=== PATIENT | female | born 1965 | race Caucasian/White ===

== ENCOUNTER 2018-01-12 12:03 | Inpatient (IN) | payer MEDICARE, MEDICAID ==
[2018-01-12] VITALS (12 sets, daily range): BP systolic 108–167; BP diastolic 58–112; PULSE 48–86; RESP 11–35; TEMP 97.4–98; O2SAT 97–100
[~2018-01-12] VITALS: Ht 157.5 cm; Wt 72.5 kg
[~2018-01-12 12:03] MED LIST: AMPI500C63
[2018-01-12] MEDS ORDERED: SODIUM CHLORIDE 0.9% FLUSH 10 ML FLUSH IV FLUSH PRN (12:45)
[2018-01-12] MEDS ORDERED: LORazepam 2 MG/ML VIAL IV PUSH ONE (12:45)
[2018-01-12 12:54] LABS: BILIRUBIN, URINE NEG (NEG); BLOOD, URINE MOD (NEG); GLUCOSE,URINE NEG (NEG); KETONE, URINE NEG (NEG); NITRITE,URINE NEG (NEG); PH, URINE 5.5 (5.0-8.5); URINE COLOR YELLOW (YELLW/STRAW); URINE LEUKOCYTE ESTERASE NEG (NEG)
[2018-01-12 12:56] LABS: AUTOMATED NEUTROPHIL # 16.6 TH/MM3 (1.8-7.7); BASOPHIL % 0.1 % (0.0-2.0); EOSINOPHIL # 0.1 TH/MM3 (0-0.4); EOSINOPHIL % 0.3 % (0.0-4.0); HEMATOCRIT 44.3 % (35.0-46.0); HEMOGLOBIN 15.1 GM/DL (11.6-15.3); LYMPH % 7.5 % (9.0-44.0); LYMPHOCYTE # 1.4 TH/MM3 (1.0-4.8); MEAN CELL VOLUME 86.8 FL (80.0-100.0); MEAN CORPUSCULAR HEMOGLOBIN 29.6 PG (27.0-34.0); MEAN CORPUSCULAR HGB CONC 34.2 % (32.0-36.0); MEAN PLATELET VOLUME 7.9 FL (7.0-11.0); MONO % 5.3 % (0.0-8.0); NEUT % 86.8 % (16.0-70.0); PLATELET COUNT 354 TH/MM3 (150-450); RED BLOOD COUNT 5.11 MIL/MM3 (4.00-5.30); RED CELL DISTRIBUTION WIDTH 13.8 % (11.6-17.2); WHITE BLOOD COUNT 19.1 TH/MM3 (4.0-11.0)
[2018-01-12 13:00] LABS: AMORPHOUS SEDIMENT, URINE LARGE; RBC, URINE 0-3 /hpf (0-3); TRANSITIONAL EPI CELLS, URINE > 8 /hpf
[2018-01-12] MEDS ORDERED: SODIUM CHLOR 0.9% 1000 ML INJ 1,000 ML IV ONE ×2 (13:00→15:30)
[2018-01-12 13:06] LABS: CHLORIDE 100 MEQ/L (98-107); SODIUM (NA) 136 MEQ/L (136-145)
[2018-01-12 13:09] LABS: CALCIUM 9.3 MG/DL (8.5-10.1)
[2018-01-12 13:10] LABS: ALBUMIN 3.9 GM/DL (3.4-5.0); BICARBONATE 23.9 MEQ/L (21.0-32.0); BLOOD UREA NITROGEN 66 MG/DL (7-18); GLUCOSE,RANDOM 130 MG/DL (74-106)
[2018-01-12 13:12] LABS: ALT (GPT) 24 U/L (10-53)
[2018-01-12 13:13] LABS: AST (GOT) 17 U/L (15-37); GLOMERULAR FILTRATION RATE 8 ML/MIN (>89)
[2018-01-12 13:14] LABS: TOTAL BILIRUBIN ADULT 0.5 MG/DL (0.2-1.0); TOTAL PROTEIN 9.2 GM/DL (6.4-8.2)
--- NOTE | 2018-01-12 13:14 | RADRPT ---
EXAM DATE/TIME: 01/12/2018 12:54 [place] COMPARISON: No previous studies available for comparison. INDICATIONS : Altered mental status RADIATION DOSE: 56.17 CTDIvol (mGy) MEDICAL HISTORY : Non-responsive. SURGICAL HISTORY : Surgery for blood clots ENCOUNTER: Initial ACUITY: 1 day PAIN SCALE: Non-responsive LOCATION: cranial TECHNIQUE: Multiple contiguous axial images were obtained of the head. Using automated exposure control and adj ustment of the mA and/or kV according to patient size, radiation dose was kept as low as reasonably a chievable to obtain optimal diagnostic quality images. DICOM format image data is available electro nically for review and comparison. FINDINGS: CEREBRUM: The ventricles are normal for age. No evidence of midline shift, mass lesion, hemorrhage or acute in farction. No extra-axial fluid collections are seen. POSTERIOR FOSSA: The cerebellum and brainstem are intact. The 4th ventricle is midline. The cerebellopontine angle i s unremarkable. EXTRACRANIAL: The visualized portion of the orbits is intact. SKULL: The calvaria is intact. No evidence of skull fracture. CONCLUSION: Negative noncontrast head CT Kush Huerta MD on January 12, 2018 at 13:11 Board Certified Radiologist. This report was verified electronically.
[2018-01-12 13:15] LABS: ALKALINE PHOSPHATASE 80 U/L (45-117)
[2018-01-12 13:18] LABS: TROPONIN I LESS THAN 0.02 NG/ML (0.02-0.05)
--- NOTE | 2018-01-12 14:06 | PD ---
HPI Chief Complaint: Altered Mental Status Time Seen by Provider: 12:24 Travel History International Travel<30 days: No Contact w/Intl Traveler<30days: No Traveled to known affect area: No History of Present Illness HPI 52 yo Female arrives with his son due to altered mental status. Patient was at a bar yesterday evening around 6:30 PM the patient's son encountered her at home during which time she was observed with drunken affect and very sleepy affect. He can her again this morning and she appeared to be even more intoxicated and sleepy. Due to altered mental status the patient cannot offer much history here limiting history. PFSH Past Medical History Cancer: Yes (CERVICAL) Diminished Hearing: No Tetanus Vaccination: Unknown ?: Unknown Past Surgical History Abdominal Surgery: Yes (ABDOMINAL SURGERY FOR "BOOLD CLOTS") Social History Alcohol Use: No Tobacco Use: Yes (ONE PK PER DAY) Substance Use: No Allergies-Medications (Allergen,Severity, Reaction): Coded Allergies: No Known Allergies (Verified Allergy, Unknown, 01/12/18) Reported Meds & Prescriptions Reported Meds & Active Scripts Active No Active Prescriptions or Reported Medications Review of Systems ROS Limitations: Clinical Condition, Intoxication Physical Exam Narrative GENERAL: 52-year-old female well-nourished well-developed mild to moderate distress Vital Signs Date Time Temp Pulse Resp B/P (MAP) Pulse Ox O2 Delivery O2 Flow Rate FiO2 01/12/18 13:24 98 Room Air 01/12/18 12:21 98 Room Air 01/12/18 12:19 98.0 84 16 109/66 (80) 97 SKIN: Warm and dry. HEAD: Atraumatic. Normocephalic. EYES: Pupils equal and round. No scleral icterus. No injection or drainage. ENT: No nasal bleeding or discharge. Mucous membranes pink and moist. NECK: Trachea midline. No JVD. CARDIOVASCULAR: Regular rate and rhythm. RESPIRATORY: No accessory muscle use. Clear to auscultation. Breath sounds equal bilaterally. GASTROINTESTINAL: Abdomen soft, non-tender, nondistended. Hepatic and splenic margins not palpable. MUSCULOSKELETAL: Extremities without clubbing, cyanosis, or edema. No obvious deformities. NEUROLOGICAL: Patient moves all extremities normally. The cranial nerves are normal. She does not answer questions. At time she calls for her son attempts to him however cannot meaningfully participate with a history of present illness and physical exam. PSYCHIATRIC: Unable to assess. Data Data Last Documented VS Vital Signs Date Time Temp Pulse Resp B/P (MAP) Pulse Ox O2 Delivery O2 Flow Rate FiO2 01/12/18 13:24 98 Room Air 01/12/18 12:19 98.0 84 16 109/66 (80) Orders Orders Electrocardiogram (01/12/18 12:31) Ammonia (01/12/18 12:31) Complete Blood Count With Diff (01/12/18 12:31) Comprehensive Metabolic Panel (01/12/18 12:31) Creatine Kinase (Cpk) (01/12/18 12:31) Troponin I (01/12/18 12:31) Thyroid Stimulating Hormone (01/12/18 12:31) Urinalysis - C+S If Indicated (01/12/18 12:31) Ct Brain W/O Iv Contrast(Rout) (01/12/18 12:31) Ecg Monitoring (01/12/18 12:31) Iv Access Insert/Monitor (01/12/18 12:31) Oximetry (01/12/18 12:31) Sodium Chloride 0.9% Flush (Ns Flush) (01/12/18 12:45) Drug Screen, Random Urine (01/12/18 12:31) Alcohol (Ethanol) (01/12/18 12:31) Salicylates (Aspirin) (01/12/18 12:31) Tylenol (Acetaminophen) (01/12/18 12:31) Lorazepam Inj (Ativan Inj) (01/12/18 12:45) Sodium Chlor 0.9% 1000 Ml Inj (Ns 1000 M (01/12/18 13:00) CKMB (01/12/18 12:41) CKMB% (01/12/18 12:41) Admit Order (Ed Use Only) (01/12/18 ) Network Technical Analyst / Telemetry [email or web address] (01/12/18 15:10) Vital Signs (Adult) Q4H (01/12/18 15:10) Activity Bed Rest (01/12/18 15:10) Labs Laboratory Tests Test 01/12/18 12:41 01/12/18 12:42 White Blood Count 19.1 TH/MM3 Red Blood Count 5.11 MIL/MM3 Hemoglobin 15.1 GM/DL Hematocrit 44.3 % Mean Corpuscular Volume 86.8 FL Mean Corpuscular Hemoglobin 29.6 PG Mean Corpuscular Hemoglobin Concent 34.2 % Red Cell Distribution Width 13.8 % Platelet Count 354 TH/MM3 Mean Platelet Volume 7.9 FL Neutrophils (%) (Auto) 86.8 % Lymphocytes (%) (Auto) 7.5 % Monocytes (%) (Auto) 5.3 % Eosinophils (%) (Auto) 0.3 % Basophils (%) (Auto) 0.1 % Neutrophils # (Auto) 16.6 TH/MM3 Lymphocytes # (Auto) 1.4 TH/MM3 Monocytes # (Auto) 1.0 TH/MM3 Eosinophils # (Auto) 0.1 TH/MM3 Basophils # (Auto) 0.0 TH/MM3 CBC Comment AUTO DIFF Differential Comment AUTO DIFF CONFIRMED Blood Urea Nitrogen 66 MG/DL Creatinine 5.40 MG/DL Random Glucose 130 MG/DL Total Protein 9.2 GM/DL Albumin 3.9 GM/DL Calcium Level 9.3 MG/DL Alkaline Phosphatase 80 U/L Aspartate Amino Transf (AST/SGOT) 17 U/L Alanine Aminotransferase (ALT/SGPT) 24 U/L Total Bilirubin 0.5 MG/DL Sodium Level 136 MEQ/L Potassium Level 5.0 MEQ/L Chloride Level 100 MEQ/L Carbon Dioxide Level 23.9 MEQ/L Anion Gap 12 MEQ/L Estimat Glomerular Filtration Rate 8 ML/MIN Ammonia 15 MCMOL/L Total Creatine Kinase 204 U/L Creatine Kinase MB 4.0 NG/ML Creatine Kinase MB % 2.0 % Troponin I LESS THAN 0.02 NG/ML Thyroid Stimulating Hormone 3rd Gen 1.290 uIU/ML Salicylates Level 2.2 MG/DL Acetaminophen Level LESS THAN 2.0 MCG/ML Ethyl Alcohol Level LESS THAN 3 MG/DL Urine Collection Type CATH Urine Color YELLOW Urine Turbidity SL CLOUDY Urine pH 5.5 Urine Specific [place] 1.020 Urine Protein 100 mg/dL Urine Glucose (UA) NEG mg/dL Urine Ketones NEG mg/dL Urine Occult Blood MOD Urine Nitrite NEG Urine Bilirubin NEG Urine Urobilinogen 0.2 MG/DL Urine Leukocyte Esterase NEG Urine RBC 0-3 /hpf Urine Transitional Epithelial Cells > 8 /hpf Urine Amorphous Sediment LARGE Microscopic Urinalysis Comment CATH-CULT NOT IND Urine Collection Time 1242 Urine Opiates Screen NEG Urine Barbiturates Screen NEG Urine Amphetamines Screen POS Urine Benzodiazepines Screen NEG Urine Cocaine Screen POS Urine Cannabinoids Screen NEG MDM Medical Decision Making Medical Screen Exam Complete: Yes Emergency Medical Condition: Yes Medical Record Reviewed: Yes Differential Diagnosis Intoxication; metabolic disarray; organ injury Narrative Course CBC & BMP Diagram 01/12/18 12:41 Total Protein 9.2 H, Albumin 3.9, Calcium Level 9.3, Alkaline Phosphatase 80, Aspartate Amino Transf (AST/SGOT) 17, Alanine Aminotransferase (ALT/SGPT) 24, Total Bilirubin 0.5 Tn < 0.02 TSH 1.290 Total CK 204 Ammonia 15 UA: no UTI UTOX: positive for amphetamines Admission for renal failure and AMS d/w Dr Nicholas Critical Care Narrative Aggregate critical care time was 35 minutes. Time to perform other separately billable procedures was not included in the critical care time. My time did not include minutes spent treating any other patients simultaneously or on activities that did not directly contribute to the patient's treatment. The services I provided to this patient were to treat and/or prevent clinically significant deterioration that could result in: Permanent deficit, weakness I provided critical care services requiring my management, as noted below: Chart data review, documentation time, medication orders and management, vital sign assessments/reviewing monitor data, ordering and reviewing lab tests, ordering and interpreting/reviewing x-rays and diagnostic studies, care of the patient and discussion of the patient with the admitting physicians. Diagnosis Primary Impression: Renal failure Qualified Codes: N17.9 - Acute kidney failure, unspecified Additional Impressions: Altered mental status, unspecified Qualified Codes: R41.82 - Altered mental status, unspecified Amphetamine intoxication with complication Admitting Information Admitting Physician Requests: Admit Scripts No Active Prescriptions or Reported Meds Anthony Dominguez MD Jan 12, 2018 14:06
[2018-01-12 15:07] LABS: ACETAMINOPHEN LESS THAN 2.0 MCG/ML (10.0-30.0)
--- NOTE | 2018-01-12 15:28 | HHI.HP ---
[facility] [place] No Primary Care Physician Admission Diagnosis Renal Failure; PSA; AMS Diagnoses: Chief Complaint: Altered mental status Travel History International Travel<30 Days: No Contact w/Intl Traveler <30 Da: No Traveled to Known Affected Are: No History of Present Illness 52-year-old white female being admitted for metabolic encephalopathy Patient is unable to be adequate historian due to her mental state. History largely obtained from discussion with the ER physician and chart. "arrives with his son due to altered mental status. Patient was at a bar yesterday evening around 6:30 PM the patient's son encountered her at home during which time she was observed with drunken affect and very sleepy affect. He can her again this morning and she appeared to be even more intoxicated and sleepy. Due to altered mental status the patient cannot offer much history here limiting history." My exam with the patient, she does not answer her name, looks worried when I try to talk to her, when I turn the lights on in the room she demonstrates a very worried affect. In the emergency room her lab workup demonstrated a significant acute kidney injury with a creatinine greater than 5. Her toxicology report also was positive for cocaine and THC. Review of Systems ROS Limitations: Altered Mental Status Past Family Social History Past Medical History None per chart Allergies: Coded Allergies: No Known Allergies (Verified Allergy, Unknown, 01/12/18) Family History Unable to obtain, none per chart Social History Unable to obtain, none per chart Physical Exam Vital Signs Vital Signs Date Time Temp Pulse Resp B/P (MAP) Pulse Ox O2 Delivery O2 Flow Rate FiO2 01/12/18 13:24 98 Room Air 01/12/18 12:21 98 Room Air 01/12/18 12:19 98.0 84 16 109/66 (80) 97 Physical Exam VS: afebrile GENERAL: Sleeping in bed, when prompted, patient becomes quite confused as to her surroundings and who I am, does not answer questions at all SKIN: Warm and dry. EYES: Pupils equal and round. No scleral icterus. No injection or drainage. ENT: No nasal bleeding or discharge. NC AT CARDIOVASCULAR: Regular rate and rhythm. no murmurs RESPIRATORY: No accessory muscle use. Clear to auscultation. Breath sounds equal bilaterally. GASTROINTESTINAL: Abdomen soft, non-tender, nondistended. Extremities: No clubbing, cyanosis, or edema. No obvious deformities. MUSCULOSKELETAL: Does move her arms and legs deliberately as if she is trying to get away from me in the bed, shows no obvious gross signs of any deficits, adequate muscle bulk and tone for age and habitus NEUROLOGICAL: No obvious cranial nerve deficits. No facial droop nor slurred speech noted. PSYCHIATRIC: Worried affect, does not answer questions, mumbles a few incoherent words but does not demonstrate slurred speech Laboratory Laboratory Tests Test 01/12/18 12:41 01/12/18 12:42 White Blood Count 19.1 Red Blood Count 5.11 Hemoglobin 15.1 Hematocrit 44.3 Mean Corpuscular Volume 86.8 Mean Corpuscular Hemoglobin 29.6 Mean Corpuscular Hemoglobin Concent 34.2 Red Cell Distribution Width 13.8 Platelet Count 354 Mean Platelet Volume 7.9 Neutrophils (%) (Auto) 86.8 Lymphocytes (%) (Auto) 7.5 Monocytes (%) (Auto) 5.3 Eosinophils (%) (Auto) 0.3 Basophils (%) (Auto) 0.1 Neutrophils # (Auto) 16.6 Lymphocytes # (Auto) 1.4 Monocytes # (Auto) 1.0 Eosinophils # (Auto) 0.1 Basophils # (Auto) 0.0 CBC Comment AUTO DIFF Differential Comment AUTO DIFF CONFIRMED Blood Urea Nitrogen 66 Creatinine 5.40 Random Glucose 130 Total Protein 9.2 Albumin 3.9 Calcium Level 9.3 Alkaline Phosphatase 80 Aspartate Amino Transf (AST/SGOT) 17 Alanine Aminotransferase (ALT/SGPT) 24 Total Bilirubin 0.5 Sodium Level 136 Potassium Level 5.0 Chloride Level 100 Carbon Dioxide Level 23.9 Anion Gap 12 Estimat Glomerular Filtration Rate 8 Ammonia 15 Total Creatine Kinase 204 Creatine Kinase MB 4.0 Creatine Kinase MB % 2.0 Troponin I LESS THAN 0.02 Thyroid Stimulating Hormone 3rd Gen 1.290 Salicylates Level 2.2 Acetaminophen Level LESS THAN 2.0 Ethyl Alcohol Level LESS THAN 3 Urine Collection Type CATH Urine Color YELLOW Urine Turbidity SL CLOUDY Urine pH 5.5 Urine Specific [place] 1.020 Urine Protein 100 Urine Glucose (UA) NEG Urine Ketones NEG Urine Occult Blood MOD Urine Nitrite NEG Urine Bilirubin NEG Urine Urobilinogen 0.2 Urine Leukocyte Esterase NEG Urine RBC 0-3 Urine Transitional Epithelial Cells > 8 Urine Amorphous Sediment LARGE Microscopic Urinalysis Comment CATH-CULT NOT IND Urine Collection Time 1242 Urine Opiates Screen NEG Urine Barbiturates Screen NEG Urine Amphetamines Screen POS Urine Benzodiazepines Screen NEG Urine Cocaine Screen POS Urine Cannabinoids Screen NEG Result Diagram: 01/12/18 1241 01/12/18 1241 Caprini VTE Risk Assessment Caprini VTE Risk Assessment: No/Low Risk (score <= 1) Caprini Risk Assessment Model Point Value = 1 Point Value = 2 Point Value = 3 Point Value = 5 Age 41-60 Minor surgery BMI > 25 kg/m2 Swollen legs Varicose veins or History of unexplained or recurrent spontaneous Oral contraceptives or hormone replacement Sepsis (< 1 month) Serious lung disease, including pneumonia (< 1 month) Abnormal pulmonary function Acute myocardial infarction Congestive heart failure (< 1 month) History of inflammatory bowel disease Medical patient at bed rest Age 61-74 Arthroscopic surgery Major open surgery (> 45 min) Laparoscopic surgery (> 45 min) Malignancy Confined to bed (> 72 hours) Immobilizing plaster cast Central venous access Age >= 75 History of VTE Family history of VTE Factor V Leiden Prothrombin [id number] Lupus anticoagulant Anticardiolipin antibodies Elevated serum homocysteine Heparin-induced thrombocytopenia Other congenital or acquired thrombophilia Stroke (< 1 month) Elective arthroplasty Hip, pelvis, or leg fracture Acute spinal cord injury (< 1 month) Prophylaxis Regimen Total Risk Factor Score Risk Level Prophylaxis Regimen 0-1 Low Early ambulation 2 Moderate Order ONE of the following: *Sequential Compression Device (SCD) *Heparin 5000 units SQ BID 3-4 Higher Order ONE of the following medications: *Heparin 5000 units SQ TID *Enoxaparin/Lovenox 40 mg SQ daily (WT < 150 kg, CrCl > 30 mL/min) *Enoxaparin/Lovenox 30 mg SQ daily (WT < 150 kg, CrCl > 10-29 mL/min) *Enoxaparin/Lovenox 30 mg SQ BID (WT < 150 kg, CrCl > 30 mL/min) AND/OR *Sequential Compression Device (SCD) 5 or more Highest Order ONE of the following medications: *Heparin 5000 units SQ TID (Preferred with Epidurals) *Enoxaparin/Lovenox 40 mg SQ daily (WT < 150 kg, CrCl > 30 mL/min) *Enoxaparin/Lovenox 30 mg SQ daily (WT < 150 kg, CrCl > 10-29 mL/min) *Enoxaparin/Lovenox 30 mg SQ BID (WT < 150 kg, CrCl > 30 mL/min) AND *Sequential Compression Device (SCD) Assessment and Plan Assessment and Plan 52-year-old white female being admitted for encephalopathy Metabolic encephalopathy -Head CT is negative. - Multifactorial (secondary to uremia secondary to dehydration as well as cocaine and THC use fx as well as possible ETOH intoxication) -Alcohol blood level pending -Fall precautions, bedside swallow screen -Telemetry Acute renal failure -suspect dehydration secondary to alcohol use -Aggressive IV fluids, BMP in a.m. Possibly ETOH intoxication -CIWA protocol cocaine and thc use -fall precautions, no beta blockers for BP -telemetry -IVFs SCDs Physician Certification 2 Midnight Certification Type: Admission for Inpatient Services Order for Inpatient Services The services are ordered in accordance with Medicare regulations or non- Medicare payer requirements, as applicable. In the case of services not specified as inpatient-only, they are appropriately provided as inpatient services in accordance with the 2-midnight benchmark. Estimated LOS (days): 2 2 days is the estimated time the patient will need to remain in the hospital, assuming treatment plan goals are met and no additional complications. Post-Hospital Plan: Not yet determined Mykel Nicholas MD Jan 12, 2018 15:28
[2018-01-12] MEDS ORDERED: LORazepam 2 MG TAB PO PRN (15:30)
[2018-01-12] MEDS ORDERED: FLUMAZENIL 0.5 MG/5 ML VIAL IV PUSH PRN (15:30)
[2018-01-12] MEDS ORDERED: LORazepam 1 MG TAB PO PRN (15:30)
[2018-01-12] MEDS ORDERED: LORazepam 2 MG/ML VIAL IV PUSH PRN ×2 (15:30)
[2018-01-12] MEDS: SODIUM CHLOR 0.9% 1000 ML INJ 1,000 ML IV SCH ×2 (16:00→17:05)
[2018-01-12] MEDS: LORazepam 2 MG/ML VIAL IV PUSH PRN ×3 (18:00→21:10)
[2018-01-13] VITALS (9 sets, daily range): BP systolic 83–135; BP diastolic 60–78; PULSE 70–86; RESP 12–28; TEMP 97.8–98.8; O2SAT 95–100
[2018-01-13] MEDS: SODIUM CHLOR 0.9% 1000 ML INJ 1,000 ML IV SCH ×2 (04:08→15:54)
[2018-01-13] MEDS: LORazepam 2 MG/ML VIAL IV PUSH PRN ×3 (04:29→07:58)
[2018-01-13 07:46] LABS: AUTOMATED NEUTROPHIL # 9.4 TH/MM3 (1.8-7.7); BASOPHIL # 0.1 TH/MM3 (0-0.2); BASOPHIL % 0.5 % (0.0-2.0); EOSINOPHIL # 0.1 TH/MM3 (0-0.4); EOSINOPHIL % 0.8 % (0.0-4.0); HEMATOCRIT 39.1 % (35.0-46.0); HEMOGLOBIN 13.4 GM/DL (11.6-15.3); LYMPHOCYTE # 1.7 TH/MM3 (1.0-4.8); MEAN CELL VOLUME 86.6 FL (80.0-100.0); MEAN CORPUSCULAR HEMOGLOBIN 29.7 PG (27.0-34.0); MEAN CORPUSCULAR HGB CONC 34.3 % (32.0-36.0); MEAN PLATELET VOLUME 7.6 FL (7.0-11.0); MONO % 7.3 % (0.0-8.0); MONOCYTE # 0.9 TH/MM3 (0-0.9); NEUT % 77.4 % (16.0-70.0); PLATELET COUNT 277 TH/MM3 (150-450); RED BLOOD COUNT 4.51 MIL/MM3 (4.00-5.30); RED CELL DISTRIBUTION WIDTH 14.2 % (11.6-17.2); WHITE BLOOD COUNT 12.2 TH/MM3 (4.0-11.0)
[2018-01-13 08:16] LABS: BICARBONATE 22.7 MEQ/L (21.0-32.0); BLOOD UREA NITROGEN 38 MG/DL (7-18); CALCIUM 8.6 MG/DL (8.5-10.1); CHLORIDE 109 MEQ/L (98-107); GLOMERULAR FILTRATION RATE 31 ML/MIN (>89); GLUCOSE,RANDOM 91 MG/DL (74-106); SODIUM (NA) 138 MEQ/L (136-145)
--- NOTE | 2018-01-13 12:14 | EKG ---
Date Performed: 01/12/2018 Time Performed: 14:07:29 PTAGE: 52 years EKG: Sinus rhythm WITH SINUS ARRHYTHMIA NONSPECIFIC T-WAVE ABNORMALITY BORDERLINE ECG NO PREVIOUS TRACING DOCTOR: Zeeshan Fabian Interpretating Date/Time 01/13/2018 12:12:56
--- NOTE | 2018-01-13 12:46 | HHI.PR ---
Subjective Remarks Nursing denies any deterioration since last night. Patient herself cannot give much history as she appears quite dazed and somnolent which is still improved since yesterday. But has no complaints today. Objective Vital Signs Date Time Temp Pulse Resp B/P (MAP) Pulse Ox O2 Delivery O2 Flow Rate FiO2 01/13/18 12:00 98.1 77 20 126/62 (83) 96 01/13/18 12:00 77 01/13/18 08:00 98.8 77 20 120/60 (80) 95 01/13/18 08:00 77 01/13/18 05:01 70 01/13/18 05:01 70 15 131/62 (85) 99 01/13/18 04:10 74 28 135/66 (89) 97 01/13/18 04:10 74 01/13/18 04:07 98.7 70 27 83/66 (72) 96 01/13/18 04:07 70 01/13/18 00:00 70 01/13/18 00:00 97.8 70 12 123/68 (86) 100 01/12/18 22:00 68 01/12/18 21:04 86 35 167/112 (130) 01/12/18 21:01 76 31 158/110 (126) 01/12/18 21:00 72 01/12/18 20:01 97.8 56 12 112/58 (76) 100 01/12/18 20:00 58 01/12/18 19:01 60 11 108/65 (79) 100 01/12/18 18:30 60 14 127/68 (87) 99 01/12/18 18:00 48 13 131/64 (86) 100 01/12/18 17:25 97.4 51 14 135/76 (95) 100 01/12/18 13:24 98 Room Air I/O 01/12/18 01/12/18 01/12/18 01/13/18 01/13/18 01/13/18 06:59 14:59 22:59 06:59 14:59 22:59 Intake Total 1000 ml 1070 ml 1000 ml Output Total 2050 ml Balance 1000 ml 1070 ml -1050 ml Intake Oral 0 ml IV Total 1000 ml 1070 ml 1000 ml Output Urine Total 2050 ml Bladder Scan Volume Amount 999 ml Result Diagram: 01/13/18 0733 01/13/18 0733 Objective Remarks Sitting up in bed, appears awake but very dazed in her stair, has dried food on her chin which she is not aware of Is oriented to person, does answer questions but answers incorrectly, thinks that it is June 2014, does not know what she was brought into the hospital Actually cooperative with physical exam today, unlike yesterday, has 4 out of 5 proximal upper extremity strength A/P Assessment and Plan 52-year-old white female being admitted for encephalopathy Metabolic encephalopathy -partially improved -Head CT is negative. -likely 2/2 stimulant abuse and/or ETOH -Fall precautions, passed bedside swallow -Telemetry -We will order cognition evaluation with speech therapy, tolerating p.o. intake on the other hand Acute renal failure -suspect dehydration secondary to alcohol use -Much improved with IV fluids, continue gen weakness - ordering Mg, phosp, CK levels, ordering PT and ST. Possibly ETOH intoxication -CINJ protocol cocaine and amphetamine use -fall precautions, no beta blockers for BP -telemetry -IVFs SCDs Mykel Nicholas MD Jan 13, 2018 12:46
[2018-01-13] MEDS ORDERED: THIAMINE INJ 100 MG in SODIUM CHLORIDE 0.9% INJ 100 ML IV ONE (14:00)
[2018-01-14] VITALS: BP 118/68
[2018-01-14 04:00] VITALS: BP 122/75; PULSE 88; RESP 18; TEMP 97.8; O2SAT 98
[2018-01-14] MEDS: SODIUM CHLOR 0.9% 1000 ML INJ 1,000 ML IV SCH (05:00)
[2018-01-14 08:00] VITALS: BP 127/81; PULSE 77; RESP 14; TEMP 96.7; O2SAT 97
[2018-01-14] MEDS ORDERED: THIAMINE INJ 100 MG in SODIUM CHLORIDE 0.9% INJ 100 ML IV SCH (09:00)
[2018-01-14 12:00] VITALS: BP 148/71; PULSE 69; RESP 16; TEMP 97.9; O2SAT 94
--- NOTE | 2018-01-14 12:36 | HHI.DCPOC ---
Discharge Care Plan Diagnosis: (1) Dehydration, severe (2) Renal failure Goals to Promote Your Health * To prevent worsening of your condition and complications * To maintain your health at the optimal level Directions to Meet Your Goals Take your medications as prescribed Follow your dietary instruction Follow activity as directed Keep your appointments as scheduled Take your immunizations and boosters as scheduled If your symptoms worsen call your PCP, if no PCP go to Urgent Care Center or Emergency Room Smoking is Dangerous to Your Health. Avoid second hand smoke Call the 24-hour hour crisis hotline for domestic abuse at Mykel Nicholas MD Jan 14, 2018 12:36
--- NOTE | 2018-01-14 12:40 | HHI.PR ---
Subjective Remarks Nursing denies any deterioration since last night. Says that the patient has ambulated to the restroom on her own. Patient wants to go home. Patient herself denies having any new complaints. She is an alert and oriented 3. She is able to give me much more insight today. Says she takes Adderall and tramadol on a daily basis at baseline. She does not understand where she may have ingested cocaine from. Says that she went to a bar prior to admission but says has not gone to a bar and 9 years says she is not definitively sure about the source of her alcohol. Is very receptive and amenable this morning. Objective Vital Signs Date Time Temp Pulse Resp B/P (MAP) Pulse Ox O2 Delivery O2 Flow Rate FiO2 01/14/18 08:00 96.7 77 14 127/81 (96) 97 01/14/18 04:00 97.8 88 18 122/75 (91) 98 01/14/18 00:00 118/68 (85) 01/13/18 21:22 98.1 80 18 125/78 (94) 96 01/13/18 20:33 86 01/13/18 16:00 76 01/13/18 16:00 98.5 76 20 128/60 (82) 95 I/O 01/13/18 01/13/18 01/13/18 01/14/18 01/14/18 01/14/18 07:00 15:00 23:00 07:00 15:00 23:00 Intake Total 1000 ml 1165 ml 1000 ml 358 ml Output Total 2050 ml 1750 ml 800 ml Balance -1050 ml -585 ml 200 ml 358 ml Intake Oral 0 ml 240 ml 358 ml IV Total 1000 ml 925 ml 1000 ml Output Urine Total 2050 ml 1750 ml 800 ml Stool Total 0 ml Result Diagram: 01/13/18 0733 01/13/18 0733 Objective Remarks Sitting up in bed, alert and oriented 3, pleasant mood A/P Assessment and Plan 52-year-old white female being admitted for encephalopathy Metabolic encephalopathy -resolved, was likely secondary to uremia secondary to acute renal failure as well as stimulant based adverse effects Acute renal failure near resolution. Counseled patient for aggressive IV hydration especially being on Adderall at home. Minimum 8-10 glasses of water a day, further with any sweating. Patient has met maximal benefit from hospitalization and is clinically stable for discharge. Mykel Nicholas MD Jan 14, 2018 12:40
== END 2018-01-14 13:30 | disposition home or self-care (01) | DRG 682 ==
LOC: PHED 12:03 → PHEDA 15:11 → PHICU 16:46 → PH3B 01-13 19:59
PROVIDERS: ADMIT Hospitalist; ATTEND Hospitalist
DX: N17.9 Acute kidney failure, unspecified (principal); G93.41 Metabolic encephalopathy; E86.0 Dehydration; F14.929 Cocaine use, unspecified with intoxication, unspecified; F12.929 Cannabis use, unspecified with intoxication, unspecified; Z72.0 Tobacco use; Z85.41 Personal history of malignant neoplasm of cervix uteri
CPT/HCPCS: 70450; 80048; 80053; 80307; 81001; 82140; 82550; 82552; 82607; 83735; 84100; 84443; 84484; 85025; 93005; 96361; 96374; J2060; J3411; J7030